=== PATIENT | female | born 1995 | race Two or more races ===

== ENCOUNTER 2020-05-09 20:48 | Emergency (ER) | payer OTHER ==
[~2020-05-09] VITALS: Ht 154.9 cm; Wt 69.4 kg
[2020-05-09] MEDS ORDERED: MORGIDOX100 MG (21:47)
[2020-05-10] MEDS ORDERED: AMOX-CLAV 875-1 EACH PO ×2 (02:17→02:19)
== END 2020-05-10 02:33 ==
LOC: ER 20:48
DX: L76.82 Other postprocedural complications of skin and subcutaneous tissue (principal); I96 Gangrene, not elsewhere classified; Z20.828 Contact with and (suspected) exposure to other viral communicable diseases

== ENCOUNTER 2024-01-14 13:22 | Emergency (ER) | payer OTHER ==
[~2024-01-14] VITALS: Ht 152.4 cm; Wt 52.2 kg
[~2024-01-14 13:22] MED LIST: AMOX-CLAV 875-1 EACH PO; MORGIDOX100 MG
[2024-01-14] MEDS ORDERED: IRON159 MG (13:52)
[2024-01-14 14:37] LABS: HEMATOCRIT 25.7 % (36.0-45.00); MEAN CORPUSCULAR HGB CONC 31.4 g/dl (32.0-36.0); PLATELET COUNT 320 K/uL (150-450)
[2024-01-14 14:38] LABS: HEMOGLOBIN 8.1 g/dL (12.0-15.00); MEAN CELL VOLUME 65.9 fL (80.00-100.00); MEAN CORPUSCULAR HEMOGLOBIN 20.7 pg (27.00-32.0)
[2024-01-14] MEDS ORDERED: IRON325 MG PO (14:48)
[2024-01-14] MEDS ORDERED: MIRALAX510 GM PO (14:48)
[2024-01-14 14:55] VITALS: BP 118/71; O2SAT 100
== END 2024-01-14 14:57 | disposition home or self-care (01) ==
LOC: ER 13:22
PROVIDERS: General Practice
DX: R53.1 Weakness (principal); D64.89 Other specified anemias